=== PATIENT | female | born 1935 | race Hispanic/Latino ===

== ENCOUNTER → 2018-10-14 | Outpatient (CLI) | payer OTHER, SELFPAY ==
--- NOTE | 2018-10-14 16:21 | US ---
EXAM DESCRIPTION: Abdomen,Complete: Ultrasound. CLINICAL HISTORY: OTHER ASCITES COMPARISON: None Available. TECHNIQUE: Transabdominal scannin-dimensional and Doppler modes. FINDINGS: Gallbladder: Normal size with no intraluminal stones or sludge. Normal wall thickness 2 mm with no fluid. Nontender with transducer pressure. Common bile duct: 3.7 mm caliber is normal. Liver: Long axis right lobe 13.8 cm Pancreas: Included segments with normal echogenicity. Pancreatic duct not seen.. Abdominal aorta: Normal caliber from the proximal segment to the distal bifurcation. IVC: visualized; normal caliber. Spleen normal echogenicity; long axis measurement is 10.3 cm. Right kidney: 9.9 cm long axis. Minimal lobulation of the capsule and minimal thinning of the cortex with normal echogenicity. No hydronephrosis, perinephric fluid, or echogenic stone. Left kidney: 10.3 cm long axis. Cortical thinning and increased cortical echogenicity. Minimal lobulation of the capsule. 6.8 mm echogenic stone. No hydronephrosis or perinephric fluid. IMPRESSION: 1. Gallbladder is unremarkable with no tenderness sludge or stones. Normal caliber of the common bile duct. Pancreas is negative. 2. Fatty liver but not enlarged. Normal intrahepatic ducts and vessel flow. Smooth capsule with no ascites. Spleen is negative. 3. Bilateral kidneys showing age-related cortical changes, more left than right. 6.8 mm nonobstructing stone in the left kidney. No hydronephrosis bilaterally. Normal caliber of the abdominal aorta and IVC. Electronically signed by: Berlin Cheney MD 10/14/2018 4:19 PM CDT
== END ==
LOC: US 08:05
PROVIDERS: ATTEND Family Medicine
DX: R18.8 Other ascites (principal); K76.0 Fatty (change of) liver, not elsewhere classified; N20.0 Calculus of kidney